=== PATIENT | female | born 1945 | race Caucasian/White ===

== ENCOUNTER → 2018-09-11 | Outpatient (CLI) | payer MEDICARE, OTHER ==
[~2018-09-11] MED LIST: REGADENOSON 0.4 MG/5 ML SYRINGE ONE
== END | disposition home or self-care (01) ==
LOC: CFH 12:37
PROVIDERS: ATTEND Physician Assistant Medical
DX: I44.0 Atrioventricular block, first degree (principal); I10 Essential (primary) hypertension; I48.0 Paroxysmal atrial fibrillation
CPT/HCPCS: 78452; 93017; A9502; J2785

== ENCOUNTER → 2020-01-14 | Outpatient (CLI) | payer MEDICARE, OTHER | END | disposition home or self-care (01) | LOC: CVU 10:43 | PROVIDERS: ATTEND Internal Medicine Cardiovascular Disease | DX: I10 Essential (primary) hypertension (principal) | CPT/HCPCS: 93975 ==